=== PATIENT | male | born 1975 | race Caucasian/White ===

== ENCOUNTER 2020-10-07 18:59 | Emergency (ER) | payer SELFPAY ==
[2020-10-07] MEDS ORDERED: METHYLPREDNISOLONE 125 MG INJ ONE (19:43)
[2020-10-07] MEDS ORDERED: DIPHENHYDRAMINE 50 MG/ML VIAL ONE (19:43)
[2020-10-07] MEDS ORDERED: EPINEPHRINE/PF 1 MG/ML AMP ONE (19:43)
[2020-10-07] MEDS ORDERED: FAMOTIDINE 20 MG/2 ML VIAL IV ONE (19:44)
--- NOTE | 2020-10-07 23:57 | EDPHYS ---
Physician Documentation [facility] Name: Bg Freeman Age: 44 yrs Sex: Male : 1975 Arrival Date: 10/07/2020 Time: 19:00 Bed 18 Private MD: ED Physician Ramana Nevarez HPI: 10/07 19:31 This 44 yrs old Male presents to ER via Ambulatory with complaints of Allergic Reaction.mh7 19:32 The patient presents with difficulty swallowing, itching, swelling of the lips. Onset: mh7 The symptoms/episode began/occurred today, at 15:00. Associated signs and symptoms: Pertinent positives: dysphagia, swelling, itching, Pertinent negatives: abdominal pain, Altered mental status chest pain, fever, headache, hives, Light headed nausea, rash, shortness of breath, Syncope. Possible causes: Ate pepperoni pizza. At home the patient or guardian has treated the symptoms with nothing. Severity of symptoms: At their worst the symptoms were moderate today, 1 hour(s) ago, in the emergency department the symptoms are unchanged. The patient has experienced a previous episode, a few years ago. States that he ate pepperoni pizza from a restaurant \T\1400 then within an hour started to have itching of face and upper lip. He started to feel like his throat was swelling \T\ 1800. He has an EpiPen which he did not use due to it being .. Historical: - Allergies: 19:04 PENICILLINS; ca1 19:04 Ibuprofen; ca1 - PMHx: 19:04 Hypertension; ca1 - PSHx: 19:04 Cholecystectomy; ca1 - Immunization history:: Flu vaccine is up to date. - Social history:: Smoking status: Patient denies any tobacco usage or history of. ROS: 19:32 Constitutional: Negative for fever, chills, and weight loss, Eyes: Negative for injury, mh7 pain, redness, and discharge, Neck: Negative for injury, pain, and swelling, Cardiovascular: Negative for chest pain, palpitations, and edema, Respiratory: Negative for shortness of breath, cough, wheezing, and pleuritic chest pain, Abdomen/GI: Negative for abdominal pain, nausea, vomiting, diarrhea, and constipation, Back: Negative for injury and pain, : Negative for injury, bleeding, discharge, and swelling, MS/Extremity: Negative for injury and deformity, Skin: Negative for injury, rash, and discoloration, Neuro: Negative for headache, weakness, numbness, tingling, and seizure, Psych: Negative for depression, anxiety, suicide ideation, homicidal ideation, and hallucinations, Endocrine: Negative for neck swelling, polydipsia, polyuria, polyphagia, and marked weight changes, Hematologic/Lymphatic: Negative for swollen nodes, abnormal bleeding, and unusual bruising. Exam: 19:32 Constitutional: This is a well developed, well nourished patient who is awake, alert, mh7 and in no acute distress. 19:32 Eyes: Pupils equal round and reactive to light, extra-ocular motions intact. Lids and lashes normal. Conjunctiva and sclera are non-icteric and not injected. Cornea within normal limits. Periorbital areas with no swelling, redness, or edema. 19:32 Neck: Trachea midline, no thyromegaly or masses palpated, and no cervical lymphadenopathy. Supple, full range of motion without nuchal rigidity, or vertebral point tenderness. No Meningismus. Chest/axilla: Normal chest wall appearance and motion. Nontender with no deformity. No lesions are appreciated. Cardiovascular: Regular rate and rhythm with a normal S1 and S2. No gallops, murmurs, or rubs. Normal PMI, no JVD. No pulse deficits. Respiratory: Lungs have equal breath sounds bilaterally, clear to auscultation and percussion. No rales, rhonchi or wheezes noted. No increased work of breathing, no retractions or nasal flaring. Abdomen/GI: Soft, non-tender, with normal bowel sounds. No distension or tympany. No guarding or rebound. No evidence of tenderness throughout. Back: No spinal tenderness. No costovertebral tenderness. Full range of motion. Skin: Warm, dry with normal turgor. Normal color with no rashes, no lesions, and no evidence of cellulitis. MS/ Extremity: Pulses equal, no cyanosis. Neurovascular intact. Full, normal range of motion. Neuro: Awake and alert, GCS 15, oriented to person, place, time, and situation. Cranial nerves II-XII grossly intact. Motor strength 5/5 in all extremities. Sensory grossly intact. Cerebellar exam normal. Normal gait. Psych: Awake, alert, with orientation to person, place and time. Behavior, mood, and affect are within normal limits. 19:32 Head/face: Noted is swelling, that is mild, of the upper lip. 19:32 ENT: External ear(s): are unremarkable, Nose: is normal, Mouth: Lips: upper lip swelling, Oral mucosa: normal, Gums: normal with healthy appearance, Tongue: is normal, abscess, is not appreciated, drooling, is not appreciated, Posterior pharynx: is normal, airway is patent, Airway: normal, no evidence of obstruction, patent, Tonsils: are normal in appearance, Uvula: normal, swelling, is not appreciated, erythema, that is mild, exudate, is not appreciated, peritonsillar mass, is not appreciated, pooling of secretions, is not appreciated. Vital Signs: 19:01 BP 143 / 92; Pulse 94; Resp 18 S; Temp 97.6(TE); Pulse Ox 97% on R/A; Weight 122.47 kg ca1 (R); Height 6 ft. 5 in. (195.58 cm) (R); Pain 0/10; 19:10 BP 128 / 86; Pulse 92; Resp 16 S; Pulse Ox 94% on R/A; ca1 20:10 BP 135 / 63; Pulse 83; Resp 16 S; Pulse Ox 95% on R/A; ca1 21:00 BP 124 / 67; Pulse 83; Resp 16 S; Pulse Ox 95% on R/A; ca1 22:00 BP 116 / 55; Pulse 86; Resp 16 S; Pulse Ox 95% on R/A; ca1 22:40 BP 121 / 64; Pulse 80; Resp 18; Pulse Ox 95% on R/A; mg2 10/08 00:15 BP 118 / 90; Pulse 81; Resp 18; Temp 98; Pulse Ox 100% on R/A; mg2 10/07 19:01 Body Mass Index 32.02 (122.47 kg, 195.58 cm) ca1 MDM: 10/07 23:53 Differential diagnosis: anaphylaxis, angioedema, bronchospasm, urticaria, Allergic mh7 Reaction. Data reviewed: vital signs, nurses notes. Data interpreted: Pulse oximetry: on room air is 95 %. Interpretation: normal. Counseling: I had a detailed discussion with the patient and/or guardian regarding: the historical points, exam findings, and any diagnostic results supporting the discharge/admit diagnosis, the need for outpatient follow up, an allergy/conference specialist, to return to the emergency department if symptoms worsen or persist or if there are any questions or concerns that arise at home. Response to treatment: the patient's symptoms have resolved after treatment, the patient's blood pressure is in an acceptable range, mental status has returned to baseline, the patient no longer shows bradycardia, the patient is not short of breath, the patient is not tachycardic, the patient's pain is gone, the patient's temperature has normalized. 23:57 [facility] 10/07 19:17 Order name: Saline Lock; Complete Time: : [facility] Administered Medications: 19:29 Drug: Pepcid 20 mg Route: IVP; Site: right hand; ca1 22:58 Follow up: Response: No adverse reaction; Marked relief of symptoms mg2 19:31 Drug: SOLU-Medrol 125 mg Route: IVP; Site: right hand; ca1 22:58 Follow up: Response: No adverse reaction; Marked relief of symptoms mg2 19:33 Drug: Benadryl 50 mg Route: IVP; Site: right hand; ca1 22:58 Follow up: Response: No adverse reaction; Marked relief of symptoms mg2 19:35 Drug: EPINEPHrine 1mg/mL 1:1,000 0.5 mg Route: IM; Site: right deltoid; ca1 22:58 Follow up: Response: No adverse reaction; Marked relief of symptoms mg2 Disposition: 10/07/20 23:57 Discharged to Home. Impression: Angioedema, Allergic Reaction. - Condition is Stable. - Discharge Instructions: Angioedema, [id number]. - Prescriptions for Benadryl 25 mg Oral Capsule - take 1 capsule by ORAL route every 6 hours As needed; 30 tablet. Pepcid 20 mg Oral Tablet - take 1 tablet by ORAL route every 12 hours for 5 days; 10 tablet. Prednisone 20 mg Oral Tablet - take 2 tablet by ORAL route once daily for 5 days; 10 tablet. EpiPen 0.3 mg Injection auto- injector - inject 1 pen by INTRAMUSCULAR route as directed Inject into the outer portion of the thigh, through clothing if necessary. Indicated in the emergency treatment of allergic reactions; 1 Kit. - Medication Reconciliation Form, Thank You Letter, Antibiotic Education, Prescription Opioid Use form. - Follow up: Private Physician; When: 1 - 2 days; Reason: Worsening of condition, Recheck today's complaints, Continuance of care, Re-evaluation by your physician. Follow up: Lorene Miranda MD; When: 1 - 2 days; Reason: Worsening of condition, Recheck today's complaints. Follow up: Brodie Jimenez MD; When: 1 - 2 days; Reason: Worsening of condition, Recheck today's complaints, Continuance of care. - Problem is new. - Symptoms have improved. Signatures: Roly Edward RN RN mg2 Martha Ivory RN RN ca1 Ramana Nevarez MD MD mh7 Corrections: (The following items were deleted from the chart) 10/08 00:15 10/07 23:57 10/07/2020 23:57 Discharged to Home. Impression: Angioedema; Allergic mg2 Reaction. Condition is Stable. Forms are Medication Reconciliation Form, Thank You Letter, Antibiotic Education, Prescription Opioid Use. Follow up: Private Physician; When: 1 - 2 days; Reason: Worsening of condition, Recheck today's complaints, Continuance of care, Re-evaluation by your physician. Follow up: Lorene Miranda; When: 1 - 2 days; Reason: Worsening of condition, Recheck today's complaints. Follow up: Brodie Jimenez; When: 1 - 2 days; Reason: Worsening of condition, Recheck today's complaints, Continuance of care. Problem is new. Symptoms have improved. mh7
--- NOTE | 2020-10-07 23:57 | ER ---
Nurse's Notes [facility] Name: Bg Freeman Age: 44 yrs Sex: Male : 1975 Arrival Date: 10/07/2020 Time: 19:00 Bed 18 Private MD: Diagnosis: Angioedema;Allergic Reaction Presentation: 10/07 19:01 Chief complaint: Patient states: At pizza around 1500, an hour after lips swollen, ca1 changes in voice. Reports difficulty swallowing and breathing. Coronavirus screen: Client denies travel out of the [place] in the last 14 days. At this time, the client does not indicate any symptoms associated with coronavirus-19. Ebola Screen: Patient negative for fever greater than or equal to 101.5 degrees Fahrenheit, and additional compatible Ebola Virus Disease symptoms Patient denies exposure to infectious person. Patient denies travel to an Ebola-affected area in the 21 days before illness onset. No symptoms or risks identified at this time. Initial Sepsis Screen: Does the patient meet any 2 criteria? No. Patient's initial sepsis screen is negative. Does the patient have a suspected source of infection? No. Patient's initial sepsis screen is negative. Risk Assessment: Do you want to hurt yourself or someone else? Patient reports no desire to harm self or others. Onset of symptoms was October 07, 2020. 19:01 Method Of Arrival: Ambulatory ca1 19:01 Acuity: GERI 2 ca1 Historical: - Allergies: 19:04 PENICILLINS; ca1 19:04 Ibuprofen; ca1 - PMHx: 19:04 Hypertension; ca1 - PSHx: 19:04 Cholecystectomy; ca1 - Immunization history:: Flu vaccine is up to date. - Social history:: Smoking status: Patient denies any tobacco usage or history of. Screenin:10 Abuse screen: Denies threats or abuse. Denies injuries from another. ca1 19:10 Nutritional screening: No deficits noted. Tuberculosis screening: No symptoms or risk ca1 factors identified. Fall Risk IV access (20 points). Assessment: 19:10 General: Appears in no apparent distress. comfortable, Behavior is calm, cooperative, ca1 appropriate for age. Pain: Denies pain. Neuro: Level of Consciousness is awake, alert, obeys commands, Oriented to person, place, time, situation. Cardiovascular: Heart tones S1 S2 present Capillary refill < 3 seconds Patient's skin is warm and dry. Respiratory: Reports difficulty breathing Airway is patent Respiratory effort is even, unlabored, Respiratory pattern is regular, Breath sounds are clear bilaterally. GI: Abdomen is round non-distended, Bowel sounds present X 4 quads. Abd is soft and non tender X 4 quads. : No signs and/or symptoms were reported regarding the genitourinary system. EENT: Throat is clear. EENT: swelling on lower and upper lip. Reports difficulty swallowing since 1600. Derm: Skin is intact, is healthy with good turgor, Skin is pink, warm \T\ dry. Musculoskeletal: Circulation, motion, and sensation intact. Capillary refill < 3 seconds. 20:10 Reassessment: Patient appears in no apparent distress at this time. Patient and/or ca1 family updated on plan of care and expected duration. Pain level reassessed. Patient is alert, oriented x 3, equal unlabored respirations, skin warm/dry/pink. 21:00 Reassessment: Patient appears in no apparent distress at this time. Patient and/or ca1 family updated on plan of care and expected duration. Pain level reassessed. Patient is alert, oriented x 3, equal unlabored respirations, skin warm/dry/pink. Patient states feeling better. Patient states symptoms have improved. 22:00 Reassessment: Patient appears in no apparent distress at this time. Patient and/or ca1 family updated on plan of care and expected duration. Pain level reassessed. Patient is alert, oriented x 3, equal unlabored respirations, skin warm/dry/pink. 22:40 Reassessment: Patient appears in no apparent distress at this time. Patient and/or mg2 family updated on plan of care and expected duration. Pain level reassessed. Patient is alert, oriented x 3, equal unlabored respirations, skin warm/dry/pink. Patient states feeling better. Patient states symptoms have improved. 23:21 Reassessment: Patient appears in no apparent distress at this time. Patient and/or mg2 family updated on plan of care and expected duration. Pain level reassessed. Vital Signs: 19:01 BP 143 / 92; Pulse 94; Resp 18 S; Temp 97.6(TE); Pulse Ox 97% on R/A; Weight 122.47 kg ca1 (R); Height 6 ft. 5 in. (195.58 cm) (R); Pain 0/10; 19:10 BP 128 / 86; Pulse 92; Resp 16 S; Pulse Ox 94% on R/A; ca1 20:10 BP 135 / 63; Pulse 83; Resp 16 S; Pulse Ox 95% on R/A; ca1 21:00 BP 124 / 67; Pulse 83; Resp 16 S; Pulse Ox 95% on R/A; ca1 22:00 BP 116 / 55; Pulse 86; Resp 16 S; Pulse Ox 95% on R/A; ca1 22:40 BP 121 / 64; Pulse 80; Resp 18; Pulse Ox 95% on R/A; mg2 10/08 00:15 BP 118 / 90; Pulse 81; Resp 18; Temp 98; Pulse Ox 100% on R/A; mg2 10/07 19:01 Body Mass Index 32.02 (122.47 kg, 195.58 cm) ca1 ED Course: 10/07 19:00 Patient arrived in ED. ca1 19:01 Martha Ivory, FREDRICK is Primary Nurse. ca1 19:04 Triage completed. ca1 19:04 Arm band placed on right wrist. ca1 19:06 Ramana Nevarez MD is Attending Physician. mh7 19:10 Patient has correct armband on for positive identification. Bed in low position. Call ca1 light in reach. Side rails up X 1. Pulse ox on. NIBP on. Warm blanket given. 19:28 Inserted saline lock: 20 gauge in right hand, using aseptic technique. Blood collected. dh4 22:40 No provider procedures requiring assistance completed. mg2 23:55 Lorene Miranda MD is Referral Physician. mh7 23:56 Brodie Jimenez MD is Referral Physician. 7 10/08 00:15 IV discontinued, intact, bleeding controlled, No redness/swelling at site. Pressure mg2 dressing applied. Administered Medications: 10/07 19:29 Drug: Pepcid 20 mg Route: IVP; Site: right hand; ca1 22:58 Follow up: Response: No adverse reaction; Marked relief of symptoms mg2 19:31 Drug: SOLU-Medrol 125 mg Route: IVP; Site: right hand; ca1 22:58 Follow up: Response: No adverse reaction; Marked relief of symptoms mg2 19:33 Drug: Benadryl 50 mg Route: IVP; Site: right hand; ca1 22:58 Follow up: Response: No adverse reaction; Marked relief of symptoms mg2 19:35 Drug: EPINEPHrine 1mg/mL 1:1,000 0.5 mg Route: IM; Site: right deltoid; ca1 22:58 Follow up: Response: No adverse reaction; Marked relief of symptoms mg2 Outcome: 23:57 Discharge ordered by mh7 10/08 00:15 Discharged to home ambulatory. mg2 Condition: stable Discharge instructions given to patient, Instructed on discharge instructions, follow up and referral plans. medication usage, Demonstrated understanding of instructions, follow-up care, medications, Prescriptions given X 4. 00:15 Patient left the ED. mg2 Signatures: Roly Edward RN RN mg2 Martha Ivory RN RN ca1 Chago Parker 4 Ramana Nevarez MD MD 7 Corrections: (The following items were deleted from the chart) 10/07 20:59 19:10 Respiratory: Reports Airway is patent Respiratory effort is even, unlabored, ca1 Respiratory pattern is regular, Breath sounds are clear bilaterally. ca1 : 19:10 EENT: swelling on lower and upper lip. ca1 ca1 22:06 22:00 Reassessment: Patient appears in no apparent distress at this time. ca1 ca1
[2020-10-08 00:40] VITALS: BP 118/90; TEMP 98; O2SAT 100
== END 2020-10-08 00:15 | disposition home or self-care (01) ==
LOC: ER 18:59
DX: T78.3XXA Angioneurotic edema, initial encounter (principal); I10 Essential (primary) hypertension; Z88.0 Allergy status to penicillin; Z88.6 Allergy status to analgesic agent
CPT/HCPCS: 96372; 96374; 96375; 99284; J0171; J1200; J2930

== ENCOUNTER → 2023-09-18 | Emergency (ER) | payer BC, SELFPAY ==
--- NOTE | 2023-09-18 19:30 | RAD REPORT ---
EXAM DESCRIPTION: RAD - Knee Left 3 View - 09/18/2023 7:03 pm CLINICAL HISTORY: Left knee pain FINDINGS: No fracture or dislocation is seen. No bone or joint abnormality is noted
--- NOTE | 2023-09-18 19:47 | EDPHYS ---
Physician Documentation [facility] Name: Bg Freeman Age: 47 yrs Sex: Male : 1975 Arrival Date: 09/18/2023 Time: 17:26 Bed 20 Private MD: ED Physician Rex Alberts HPI: 09/18 17:58 This 47 yrs old Male presents to ER via Ambulatory with complaints of Knee Injury. ms3 17:58 47-year-old male with past medical history of hypertension presents to the emergency ms3 department for left knee pain that began at 415 while playing basketball with his son. Patient states he heard a pop in his left knee. Patient states pain is a 7/10 and worse with straightening the knee. Patient denies alleviating factors. Patient states he took Tylenol prior to arrival. Historical: - Allergies: 17:34 Ibuprofen; aa5 17:34 PENICILLINS; aa5 - PMHx: 17:34 Hypertension; aa5 - PSHx: 17:34 hernia repair (Hypertension); Cholecystectomy; aa5 - Immunization history:: Adult Immunizations unknown. - Social history:: Smoking status: Patient denies any tobacco usage or history of. ROS: 17:58 Constitutional: Negative for fever, and chills. ENT: Negative for injury, pain, and ms3 discharge, Neck: Negative for injury, pain, and swelling, Cardiovascular: Negative for chest pain, and palpitations. Respiratory: Negative for shortness of breath, cough, wheezing, and pleuritic chest pain, Abdomen/GI: Negative for abdominal pain, nausea, vomiting, diarrhea, and constipation, 17:58 MS/extremity: Positive for pain, 17:58 All other systems are negative, Exam: 17:58 Constitutional: This is a well developed, well nourished patient who is awake, alert, ms3 and in no acute distress. Head/Face: Normocephalic, atraumatic. Neck: Trachea midline, no cervical lymphadenopathy. Supple, full range of motion without nuchal rigidity, or vertebral point tenderness. No Meningismus. Chest/axilla: Normal chest wall appearance and motion. Nontender with no deformity. Cardiovascular: Regular rate and rhythm with a normal S1 and S2. No gallops, murmurs, or rubs. Normal PMI, no JVD. No pulse deficits. Respiratory: Lungs have equal breath sounds bilaterally, clear to auscultation and percussion. No rales, rhonchi or wheezes noted. No increased work of breathing, no retractions or nasal flaring. Abdomen/GI: Soft, non-tender, with normal bowel sounds. No distension or tympany. No guarding or rebound. No evidence of tenderness throughout. Skin: Warm, dry with normal turgor. Normal color with no rashes, no lesions, and no evidence of cellulitis. 17:58 Musculoskeletal/extremity: Extremities: noted in the left knee: pain, tenderness, There is no evidence of swelling, Vital Signs: 17:35 BP 160 / 104; Pulse 74; Resp 16 S; Temp 98.5(TE); Pulse Ox 98% on R/A; Weight 122.47 kg aa5 (R); Height 6 ft. 5 in. (R); 19:36 BP 152 / 105; Pulse 68; Pulse Ox 96% on R/A; tm6 17:35 Body Mass Index 32.02 (122.47 kg, 195.58 cm) aa5 MDM: 17:48 Patient medically screened. ms3 17:58 Differential diagnosis: closed fracture, MCL tear vs Medial Meniscus tear. ms3 19:46 Data reviewed: vital signs, nurses notes, and as a result, I will discharge patient. ms3 Care significantly affected by the following chronic conditions: Hypertension. Counseling: I had a detailed discussion with the patient and/or guardian regarding the historical points, exam findings, and any diagnostic results supporting the discharge/admit diagnosis, radiology results, the need for outpatient follow up, to return to the emergency department if symptoms worsen or persist or if there are any questions or concerns that arise at home. Special discussion: I discussed with the patient/guardian in detail that at this point there is no indication for admission to the hospital. It is understood, however, that if the symptoms persist or worsen the patient needs to return immediately for re-evaluation. ED course: Discussed x-ray findings with patient. Patient to follow-up with Dr. Koch in 2 to 3 days. Patient understands and agrees with plan. All questions were answered. Return precautions discussed include worsening symptoms, or any other concerns. 09/18 17:57 Order name: Knee Left 3 View XRAY; Complete Time: 19:46 ms3 09/18 17:57 Order name: Knee Immobilizer; Complete Time: 18:35 ms3 09/18 17:57 Order name: Crutches; Complete Time: 18:35 ms3 Administered Medications: No medications were administered Disposition Summary: 09/18/23 19:46 Discharge Ordered Notes: Location: Home ms3 Condition: Stable ms3 Diagnosis - Pain in left knee ms3 Followup: ms3 - With: Monty Koch MD - When: 2 - 3 days - Reason: Recheck today's complaints Discharge Instructions: - Discharge Summary Sheet ms3 - Acute Knee Pain, Adult ms3 Forms: - Medication Reconciliation Form ms3 - Thank You Letter ms3 - Antibiotic Education ms3 - Prescription Opioid Use ms3 - Patient Portal Instructions ms3 - Leadership Thank You Letter ms3 Signatures: Dispatcher [employer] Rena Jolly, RN RN aa5 Rex Alberts DO DO ms3
--- NOTE | 2023-09-18 19:47 | ER ---
Nurse's Notes [facility] Name: Bg Freeman Age: 47 yrs Sex: Male : 1975 Arrival Date: 09/18/2023 Time: 17:26 Bed 20 Private MD: Diagnosis: Pain in left knee Presentation: 09/18 17:35 Chief complaint: Patient states: "I hurt my knee playing basketball with my son, I aa5 heard it pop". Coronavirus screen: At this time, the client does not indicate any symptoms associated with coronavirus-19. Ebola Screen: Patient denies travel to an Ebola-affected area in the 21 days before illness onset. Initial Sepsis Screen: Does the patient meet any 2 criteria? No. Patient's initial sepsis screen is negative. Does the patient have a suspected source of infection? No. Patient's initial sepsis screen is negative. Risk Assessment: Do you want to hurt yourself or someone else? Patient reports no desire to harm self or others. Onset of symptoms was September 18, 2023. 17:35 Acuity: GERI 4 aa5 17:35 Method Of Arrival: Ambulatory aa5 Historical: - Allergies: 17:34 Ibuprofen; aa5 17:34 PENICILLINS; aa5 - PMHx: 17:34 Hypertension; aa5 - PSHx: 17:34 hernia repair (Hypertension); Cholecystectomy; aa5 - Immunization history:: Adult Immunizations unknown. - Social history:: Smoking status: Patient denies any tobacco usage or history of. Screenin:40 [facility] ED Fall Risk Assessment (Adult) History of falling in the last 3 months, cp4 including since admission No falls in past 3 months (0 pts) Confusion or Disorientation No (0 pts) Intoxicated or Sedated No (0 pts) Impaired Gait No (0 pts) Mobility Assist Device Used No (0 pt) Altered Elimination No (0 pt) Score/Fall Risk Level 0 - 2 = Low Risk Oriented to surroundings, Maintained a safe environment, Educated pt \\T\\ family on fall prevention, incl call for assistance when getting out of bed, Assessed \\T\\ reinforced patient's understanding of fall precautions, Provided non-skid footwear, Hourly rounding (assess needs \\T\\ fall precautionary measures) done. Abuse screen: Denies threats or abuse. Nutritional screening: No deficits noted. Tuberculosis screening: No symptoms or risk factors identified. Assessment: 17:40 General: Appears in no apparent distress. Behavior is calm, cooperative, appropriate cp4 for age. Pain: Complains of pain in left knee. Musculoskeletal: Circulation, motion, and sensation intact. Reports pain in left knee. 19:36 Reassessment: Patient appears in no apparent distress at this time. No changes from tm6 previously documented assessment. Patient and/or family updated on plan of care and expected duration. Pain level reassessed. Patient is alert, oriented x 3, equal unlabored respirations, skin warm/dry/pink. Vital Signs: 17:35 BP 160 / 104; Pulse 74; Resp 16 S; Temp 98.5(TE); Pulse Ox 98% on R/A; Weight 122.47 kg aa5 (R); Height 6 ft. 5 in. (R); 19:36 BP 152 / 105; Pulse 68; Pulse Ox 96% on R/A; tm6 17:35 Body Mass Index 32.02 (122.47 kg, 195.58 cm) aa5 ED Course: 17:30 Patient arrived in ED. mg5 17:33 Arm band placed on. aa5 17:36 Triage completed. aa5 17:37 Rex Alberts DO is Attending Physician. ms3 17:37 Anne Perera is Primary Nurse. cp4 17:40 Bed in low position. Call light in reach. Side rails up X2. Provided Education on: knee cp4 pain. 17:40 No provider procedures requiring assistance completed. Patient did not have IV access cp4 during this emergency room visit. 19:05 Knee Left 3 View XRAY In Process Unspecified. EDMS 19:36 Kade Che, RN is Primary Nurse. tm6 19:46 Monty Whaley MD is Referral Physician. ms3 20:03 Crutch training done. Knee immobilizer applied on left knee. as6 Administered Medications: No medications were administered Medication: 17:40 VIS not applicable for this client. cp4 Outcome: 19:46 Discharge ordered by . ms3 20:03 Discharged to home ambulatory, with crutches, as6 20:03 Condition: stable 20:03 Discharge instructions given to patient, Instructed on discharge instructions, follow up and referral plans. crutch walking, Demonstrated understanding of instructions, follow-up care, crutch walking, 20:03 Patient left the ED. as6 Signatures: Dispatcher [employer] EDRena Ocampo, RN RN aa5 Rex Alberts DO DO ms3 Mason Linn RN RN as6 Angela Earl 5 Anne Perera cp4 Kade Che, RN RN tm6
[2023-09-18 20:17] VITALS: BP 152/105; TEMP 98.5; O2SAT 96
== END ==
LOC: ER 17:26
DX: M25.562 Pain in left knee (principal); I10 Essential (primary) hypertension; Z88.0 Allergy status to penicillin; Z88.6 Allergy status to analgesic agent

== ENCOUNTER 2025-01-02 13:07 | Emergency (ER) | payer BC ==
--- NOTE | 2025-01-02 13:56 | ER ---
Nurse's Notes [facility] Name: Bg Freeman Age: 49 yrs Sex: Male : 1975 Arrival Date: 01/02/2025 Time: 13:07 Bed DX3 Private MD: Diagnosis: Sprain of ligaments of lumbar spine Presentation: 01/02 13:40 Chief complaint: Patient states: he is having right lower back pain that started after ap3 moving a dresser yesterday. patient currently rates his back pain as a 8/10 on the pain scale. Coronavirus screen: At this time, the client does not indicate any symptoms associated with coronavirus-19. Ebola Screen: No symptoms or risks identified at this time. Initial Sepsis Screen: Does the patient meet any 2 criteria? No. Patient's initial sepsis screen is negative. Does the patient have a suspected source of infection? No. Patient's initial sepsis screen is negative. Risk Assessment: Do you want to hurt yourself or someone else? Patient reports no desire to harm self or others. Onset of symptoms was January 01, 2025. 13:40 Method Of Arrival: Ambulatory ap3 13:40 Acuity: GERI 4 ap3 Triage Assessment: 13:41 General: Appears in no apparent distress. Behavior is calm, cooperative, appropriate ap3 for age. Pain: Complains of pain in right low back Pain currently is 8 out of 10 on a pain scale. Neuro: Level of Consciousness is awake, alert, obeys commands, Oriented to person, place, time, situation, Appropriate for age. Cardiovascular: Patient's skin is warm and dry. Respiratory: Airway is patent Respiratory effort is even, unlabored, Respiratory pattern is regular, symmetrical. Musculoskeletal: Range of motion: intact in all extremities. Historical: - Allergies: 13:41 Ibuprofen; ap3 13:41 PENICILLINS; ap3 - PMHx: 13:41 Hypertension; ap3 - PSHx: 13:41 hernia repair (en); Cholecystectomy; ap3 - Immunization history:: Client reports receiving the 2nd dose of the Covid vaccine, Flu vaccine is not up to date. - Infectious Disease History:: Denies. - Social history:: Smoking status: Patient denies any tobacco usage or history of. Screenin:42 Abuse screen: Denies threats or abuse. Nutritional screening: No deficits noted. ap3 Tuberculosis screening: No symptoms or risk factors identified. 13:42 [facility] ED Fall Risk Assessment (Adult) History of falling in the last 3 months, ap3 including since admission No falls in past 3 months (0 pts) Confusion or Disorientation No (0 pts) Intoxicated or Sedated No (0 pts) Impaired Gait No (0 pts) Mobility Assist Device Used No (0 pt) Altered Elimination No (0 pt) Score/Fall Risk Level 0 - 2 = Low Risk Oriented to surroundings, Maintained a safe environment, Educated pt \T\ family on fall prevention, incl call for assistance when getting out of bed, Assessed \T\ reinforced patient's understanding of fall precautions, Hourly rounding (assess needs \T\ fall precautionary measures) done, Used ambulatory aids as needed (educated on \T\ assisted with). Assessment: 14:20 General: Appears in no apparent distress. comfortable, Behavior is calm, cooperative, ss Denies fever, feeling ill. Pain: Complains of pain in right low back Pain currently is 8 out of 10 on a pain scale. Neuro: Level of Consciousness is awake, alert, obeys commands, Oriented to person, place, time, situation. Respiratory: Airway is patent Respiratory effort is even, unlabored, Respiratory pattern is regular, symmetrical. EENT: Oral mucosa is moist. Derm: Skin is intact, is healthy with good turgor, Skin is pink, warm \T\ dry. normal. Vital Signs: 13:40 BP 138 / 91; Pulse 78; Resp 18; Temp 98.1; Pulse Ox 100% ; Weight 113.4 kg; Height 6 ap3 ft. 5 in. ; Pain 8/10; 13:40 Body Mass Index 29.65 (113.40 kg, 195.58 cm) ap3 13:40 Pain Scale: Adult ap3 ED Course: 13:10 Patient arrived in ED. cj3 13:14 Savi Serrano MD is Attending Physician. gb1 13:41 Triage completed. ap3 13:42 Arm band placed on right wrist. ap3 14:20 Danni Melchor, FREDRICK is Primary Nurse. ss 14:20 Patient has correct armband on for positive identification. Bed in low position. ss 14:20 No provider procedures requiring assistance completed. Patient did not have IV access ss during this emergency room visit. Administered Medications: No medications were administered Medication: 14:20 VIS not applicable for this client. ss Outcome: 13:55 Discharge ordered by . brooks 14:20 Discharged to home ambulatory, 14:20 Condition: good 14:20 Discharge instructions given to patient, Instructed on discharge instructions, follow up and referral plans. medication usage, Demonstrated understanding of instructions, follow-up care, medications, Prescriptions given X 1, 14:21 Patient left the ED. ss Signatures: Danni Melchor RN RN Haley Cedillo RN RN yesica3 Savi Serrano MD MD gb1 Sindi Pardo cj3
--- NOTE | 2025-01-02 13:56 | EDPHYS ---
Physician Documentation [facility] Name: Bg Freeman Age: 49 yrs Sex: Male : 1975 Arrival Date: 01/02/2025 Time: 13:07 Bed DX3 Private MD: ED Physician Savi Serrano HPI: 01/02 13:56 This 49 yrs old Male presents to ER via Ambulatory with complaints of Back gb1 Pain - LOWER. 13:56 Mr. Freeman is a 41-year-old male that was moving furniture with his on gb1 Thursday and strained his back. It was more painful yesterday and today he is still stiff and sore. He denies any fall or any numbness and tingling in his lower extremities.. Historical: - Allergies: 13:41 Ibuprofen; ap3 13:41 PENICILLINS; ap3 - PMHx: 13:41 Hypertension; ap3 - PSHx: 13:41 hernia repair (en); Cholecystectomy; ap3 - Immunization history:: Client reports receiving the 2nd dose of the Covid vaccine, Flu vaccine is not up to date. - Infectious Disease History:: Denies. - Social history:: Smoking status: Patient denies any tobacco usage or history of. Exam: 13:56 Constitutional: This is a well developed, well nourished patient who is awake, alert, gb1 and in no acute distress. Head/Face: Normocephalic, atraumatic. Eyes: Pupils equal round and reactive to light, extra-ocular motions intact. Lids and lashes normal. Conjunctiva and sclera are non-icteric and not injected. Cornea within normal limits. Periorbital areas with no swelling, redness, or edema. ENT: Nares patent. No nasal discharge, no septal abnormalities noted. Tympanic membranes are normal and external auditory canals are clear. Oropharynx with no redness, swelling, or masses, exudates, or evidence of obstruction, uvula midline. Mucous membranes moist. Neck: Trachea midline, no thyromegaly or masses palpated, and no cervical lymphadenopathy. Supple, full range of motion without nuchal rigidity, or vertebral point tenderness. No Meningismus. Chest/axilla: Normal chest wall appearance and motion. Nontender with no deformity. No lesions are appreciated. Cardiovascular: Regular rate and rhythm with a normal S1 and S2. No gallops, murmurs, or rubs. Normal PMI, no JVD. No pulse deficits. Respiratory: Lungs have equal breath sounds bilaterally, clear to auscultation and percussion. No rales, rhonchi or wheezes noted. No increased work of breathing, no retractions or nasal flaring. Abdomen/GI: Soft, non-tender, with normal bowel sounds. No distension or tympany. No guarding or rebound. No evidence of tenderness throughout. Back: No spinal tenderness. Positive mild paraspinal lumbar tenderness. Limited range of motion secondary to pain. Skin: Warm, dry with normal turgor. Normal color with no rashes, no lesions, and no evidence of cellulitis. Neuro: Awake and alert, GCS 15, oriented to person, place, time, and situation. Cranial nerves II-XII grossly intact. Motor strength 5/5 in all extremities. Sensory grossly intact. Cerebellar exam normal. Normal gait. Vital Signs: 13:40 BP 138 / 91; Pulse 78; Resp 18; Temp 98.1; Pulse Ox 100% ; Weight 113.4 kg; Height 6 ap3 ft. 5 in. ; Pain 8/10; 13:40 Body Mass Index 29.65 (113.40 kg, 195.58 cm) ap3 13:40 Pain Scale: Adult ap3 MDM: 13:50 Medical Screening Exam initiated gb1 13:56 ED course: 49-year-old male status post lumbar strain on Thursday try to move 1 furniture. Likely mechanical nature. No signs symptoms on exam of radiculopathy. Patient is able to range with forward flexion limited only secondarily to mild pain when bending forward. Patient has no radicular signs I recommend an outpatient MRI of his lumbar spine in 2 weeks if pain is not improved. He is allergic to NSAIDs so he did except a trial of Flexeril. I given whistle-tip return precautions which is compliant to prior discharge home today.. Administered Medications: No medications were administered Disposition Summary: 01/02/25 13:55 Discharge Ordered Notes: Location: Home gb1 Problem: new gb1 Symptoms: are unchanged gb1 Condition: Stable gb1 Diagnosis - Sprain of ligaments of lumbar spine gb1 Followup: gb1 - With: Private Physician - When: - Reason: Further diagnostic work-up Discharge Instructions: - Discharge Summary Sheet gb1 - Lumbar Sprain gb1 Forms: - Medication Reconciliation Form gb1 - Antibiotic Education gb1 - Prescription Opioid Use gb1 - Patient Portal Instructions gb1 - Leadership Thank You Letter gb1 Prescriptions: - Cyclobenzaprine 10 mg Oral Tablet - take 1 tablet ORAL route every 8 hours As needed; 30 tablet; Refills: 0, gb1 Product Selection Permitted Signatures: Haley Cedillo RN RN ap3 Zach, MD ALICIA Hou gb1
[2025-01-02 14:39] VITALS: BP 138/91; TEMP 98.1; O2SAT 100
== END 2025-01-02 14:21 | disposition home or self-care (01) ==
LOC: ER 13:07
DX: S33.5XXA Sprain of ligaments of lumbar spine, initial encounter (principal)
CPT/HCPCS: 99283